=== PATIENT | male | born 1960 | race Caucasian/White ===

== ENCOUNTER 2019-12-22 22:12 | Inpatient (IN) | payer MEDICAID, OTHER ==
[~2019-12-22] VITALS: Ht 182.9 cm; Wt 89.8 kg
[~2019-12-22 22:12] MED LIST: FURO20TA4; HYDR-519; LACT10SO32; PROP10TA10; SPIR25TA6
[2019-12-22] MEDS ORDERED: IBUPROFEN 600MG TABLET PO STA (23:00)
[2019-12-23] MEDS ORDERED: LEVOFLOXACIN 750MG PREMIX 150 ML IV STA (00:28)
[2019-12-23] MEDS ORDERED: SODIUM CHLORIDE 0.9% 1000ML BAG (SEPSIS BOLUS) IV ONE (00:30)
[2019-12-23 00:54] LABS: HEMATOCRIT. 35.6 % (42.0-52.0); HEMOGLOBIN. 12.4 g/dL (14.0-18.0); MEAN CORPUSCULAR HEMOGLOBIN 30.2 pg (28.0-32.0); MEAN CORPUSCULAR VOLUME 87.1 fL (80.0-94.0); MEAN PLATELET VOLUME 8.4 fl (7.4-10.4); PLATELET 106 x1000/uL (130-400); RED BLOOD CELL COUNT 4.09 mill/uL (4.7-6.1); RED CELL DISTRIBUTION WIDTH 20.3 % (11.6-14.6)
[2019-12-23 00:56] LABS: INR 1.2; PROTHROMBIN TIME 12.5 sec (9.6-11.0)
[2019-12-23 01:02] LABS: CHLORIDE 109 mEq/L (98-107)
[2019-12-23 01:31] LABS: CLARITY URINE CLEAR (CLEAR); COLOR URINE DARK YELLOW (YELLOW); KETONES URINE TRACE (NEGATIVE); LEUKOCYTE ESTERASE URINE NEGATIVE (NEGATIVE); NITRITE URINE NEGATIVE (NEGATIVE); OCCULT BLOOD URINE NEGATIVE (NEGATIVE); PROTEIN URINE NEGATIVE (NEGATIVE); SPECIFIC GRAVITY URINE 1.035 (1.005-1.030)
[2019-12-23 02:03] LABS: PLATELET ESTIMATE DECREASED
[2019-12-23] MEDS ORDERED: ONDANSETRON HCL 4MG/2ML INJ IV STA (02:19)
[2019-12-23] MEDS ORDERED: IBUPROFEN 600MG TABLET PO PRN (03:00)
[2019-12-23 05:30] VITALS: BP 124/74
[2019-12-23] MEDS ORDERED: ACETAMINOPHEN 650MG/20.3ML UDC PO PRN (06:30)
[2019-12-23 08:00] VITALS: BP 117/69
[2019-12-23] MEDS ORDERED: ONDANSETRON HCL 4MG/2ML INJ IV PRN (09:00)
[2019-12-23] MEDS ORDERED: IPRATROPIUM/ALBUTEROL 0.5-3(2.5)MG/3ML NEB HHN PRN (09:00)
[2019-12-23] MEDS: GUAIFENESIN 600MG ER TABLET PO SCH ×2 (09:28→20:34)
[2019-12-23 11:41] LABS: *AMPHETAMINES SCREEN URINE NEGATIVE (NEGATIVE); *BARBITURATES SCREEN URINE NEGATIVE (NEGATIVE); *BENZODIAZEPINES SCREEN URINE NEGATIVE (NEGATIVE); *COCAINE SCREEN URINE NEGATIVE (NEGATIVE); METHADONE URINE SCREEN NEGATIVE (NEGATIVE)
[2019-12-23 11:42] LABS: OPIATES URINE SCREEN NEGATIVE (NEGATIVE); PHENCYCLIDINE URINE SCREEN NEGATIVE (NEGATIVE)
[2019-12-23 11:52] LABS: CANNABINOID URINE SCREEN PRESUMTIVE POSITIVE (NEGATIVE)
[2019-12-23 12:00] VITALS: BP 119/64
[2019-12-23 13:56] LABS: HEPATITIS A AB IGM NEGATIVE (NEGATIVE); HEPATITIS B SURFACE ANTIGEN NEGATIVE
[2019-12-23 16:00] VITALS: BP 122/70
[2019-12-23 17:20] VITALS: BP 122/70
[2019-12-23] MEDS ORDERED: BENZONATATE 100MG CAPSULE PO PRN (17:45)
[2019-12-23 20:00] VITALS: BP 115/60
[2019-12-24] VITALS: BP 114/61
[2019-12-24] MEDS ORDERED: LEVOFLOXACIN 500MG PREMIX 100 ML IV SCH (01:30)
[2019-12-24 04:00] VITALS: BP 118/61
[2019-12-24 07:19] LABS: BASOPHILS % 0.7 % (0.0-2.0); EOSINOPHILS % 2.2 % (0.0-5.0); HEMATOCRIT. 35.1 % (42.0-52.0); HEMOGLOBIN. 12.1 g/dL (14.0-18.0); LYMPHOCYTES % 17.3 % (20.0-50.0); MEAN CORPUSCULAR HEMOGLOBIN 30.1 pg (28.0-32.0); MEAN CORPUSCULAR VOLUME 87.5 fL (80.0-94.0); MEAN PLATELET VOLUME 9.1 fl (7.4-10.4); MONOCYTES % 13.2 % (2.0-8.0); NEUTROPHILS % 66.6 % (40.0-76.0); PLATELET 86 x1000/uL (130-400); RED BLOOD CELL COUNT 4.01 mill/uL (4.7-6.1); RED CELL DISTRIBUTION WIDTH 19.9 % (11.6-14.6)
[2019-12-24 07:25] LABS: CHLORIDE 114 mEq/L (98-107)
[2019-12-24 08:00] VITALS: BP 127/68
[2019-12-24] MEDS: GUAIFENESIN 600MG ER TABLET PO SCH ×2 (09:23→20:23)
[2019-12-24] MEDS ORDERED: IOHEXOL-300 100 ML BOTTLE ONE (11:49)
[2019-12-24 12:00] VITALS: BP 127/68
[2019-12-24 16:00] VITALS: BP 119/68
[2019-12-24] MEDS: TRAMADOL 50MG TABLET PO PRN (18:44)
[2019-12-24 20:00] VITALS: BP 118/66
[2019-12-25] VITALS: BP 121/66
[2019-12-25] MEDS ORDERED: LEVOFLOXACIN 500MG PREMIX 100 ML IV SCH (02:00)
[2019-12-25] MEDS: TRAMADOL 50MG TABLET PO PRN ×2 (03:38→14:47)
[2019-12-25 04:00] VITALS: BP 108/59
[2019-12-25 08:00] VITALS: BP 116/61
[2019-12-25] MEDS: GUAIFENESIN 600MG ER TABLET PO SCH ×2 (08:11→21:27)
[2019-12-25] MEDS ORDERED: LEVO750T21 MT (10:08)
[2019-12-25] MEDS ORDERED: GUAI600T26 MT (10:08)
[2019-12-25] MEDS ORDERED: BENZ-16 MT (10:08)
[2019-12-25 12:00] VITALS: BP 116/61
[2019-12-25 20:00] VITALS: BP 97/58
[2019-12-26] VITALS: BP 101/53
[2019-12-26] MEDS: TRAMADOL 50MG TABLET PO PRN ×2 (00:04→11:24)
[2019-12-26 04:00] VITALS: BP 99/58
[2019-12-26 08:00] VITALS: BP_SYST 95; BP_DIAS 48; BP_DIAS 58
[2019-12-26] MEDS: GUAIFENESIN 600MG ER TABLET PO SCH ×2 (08:42→22:15)
[2019-12-26] MEDS: LEVOFLOXACIN 500MG TABLET PO SCH (10:59)
[2019-12-26 12:00] VITALS: BP 100/51
[2019-12-26] MEDS: KETOROLAC 15MG/ML VIAL IV PRN ×2 (15:55→22:23)
[2019-12-26 16:00] VITALS: BP 99/50
[2019-12-26 20:00] VITALS: BP 103/50
[2019-12-27] VITALS: BP 118/58
[2019-12-27 04:00] VITALS: BP 112/54
[2019-12-27] MEDS: GUAIFENESIN 600MG ER TABLET PO SCH ×2 (08:15→20:46)
[2019-12-27] MEDS: KETOROLAC 15MG/ML VIAL IV PRN ×3 (08:15→22:49)
[2019-12-27] MEDS: LEVOFLOXACIN 500MG TABLET PO SCH (11:00)
[2019-12-27 18:18] VITALS: BP 101/61
[2019-12-27] MEDS: NICOTINE 14MG PATCH TD SCH (18:20)
[2019-12-27 20:00] VITALS: BP 108/58
[2019-12-27] MEDS: TRAMADOL 50MG TABLET PO PRN (20:47)
[2019-12-28] VITALS: BP 114/66
[2019-12-28 04:00] VITALS: BP 111/60
[2019-12-28] MEDS: KETOROLAC 15MG/ML VIAL IV PRN (05:05)
[2019-12-28 08:00] VITALS: BP 115/64
[2019-12-28] MEDS: NICOTINE 14MG PATCH TD SCH (08:50)
[2019-12-28] MEDS: GUAIFENESIN 600MG ER TABLET PO SCH (08:51)
[2019-12-28] MEDS: TRAMADOL 50MG TABLET PO PRN (10:29)
[2019-12-28] MEDS: LEVOFLOXACIN 500MG TABLET PO SCH (10:29)
[2019-12-28 12:00] VITALS: BP 115/62
[2019-12-28 16:39] VITALS: BP 115/64
== END 2019-12-28 17:10 | disposition home or self-care (01) | DRG 139 ==
LOC: ER 22:12 → 6EST 12-23 03:00 → ENRESERV 12-23 04:44
PROVIDERS: ADMIT Internal Medicine; ATTEND Internal Medicine
DX: J18.9 Pneumonia, unspecified organism (principal); E43 Unspecified severe protein-calorie malnutrition; D69.6 Thrombocytopenia, unspecified; E87.8 Other disorders of electrolyte and fluid balance, not elsewhere classified; R65.10 Systemic inflammatory response syndrome (SIRS) of non-infectious origin without acute organ dysfunction; F20.9 Schizophrenia, unspecified; K74.60 Unspecified cirrhosis of liver; D64.9 Anemia, unspecified; B19.20 Unspecified viral hepatitis C without hepatic coma; K80.20 Calculus of gallbladder without cholecystitis without obstruction
CPT/HCPCS: 36415; 71045; 72110; 73502; 74177; 76700; 80048; 80053; 80305; 81003; 83605; 83880; 84145; 84484; 85025; 86705; 86709; 86803; 87340; 87804; 93005; 93970; 97161; 99285; J1885; J1956; J2405; J7030; Q9967